=== PATIENT | female | born 1950 ===

== ENCOUNTER → 2018-02-27 | Emergency (ER) | payer OTHER ==
[~2018-02-27] VITALS: Ht 165.1 cm; Wt 65.8 kg
[~2018-02-27] MED LIST: FLEXERIL5 MG; MELOXICAM15 MG; TRAMADOL HCL50 MG
== END | disposition home or self-care (01) ==
LOC: ER 21:04
DX: S80.02XA Contusion of left knee, initial encounter (principal); S20.222A Contusion of left back wall of thorax, initial encounter; S20.221A Contusion of right back wall of thorax, initial encounter; W18.39XA Other fall on same level, initial encounter; Y93.89 Activity, other specified; Y92.89 Other specified places as the place of occurrence of the external cause; Y99.8 Other external cause status

== ENCOUNTER 2021-06-22 08:15 | Outpatient (CLI) | payer OTHER | END 2021-06-22 08:20 | disposition home or self-care (01) | LOC: PPH VACUNA 08:15 | PROVIDERS: ATTEND Emergency Medicine Pediatric Emergency Medicine | DX: Z23 Encounter for immunization (principal) ==

== ENCOUNTER → 2021-06-26 11:35 | Outpatient (CLI) | payer OTHER | END | disposition home or self-care (01) | LOC: LAB 11:35 | PROVIDERS: ATTEND Physical Medicine & Rehabilitation Sports Medicine | DX: R05 Cough (principal); Z03.818 Encounter for observation for suspected exposure to other biological agents ruled out; M35.89 Other specified systemic involvement of connective tissue; R06.02 Shortness of breath; J12.82 Pneumonia due to coronavirus disease 2019; M35.81 Multisystem inflammatory syndrome; R50.9 Fever, unspecified; Z11.52 Encounter for screening for COVID-19 ==

== ENCOUNTER 2021-06-26 14:10 | Outpatient (CLI) | payer OTHER | END 2021-06-26 14:13 | disposition home or self-care (01) | LOC: RAD 14:10 | PROVIDERS: ATTEND Physical Medicine & Rehabilitation Sports Medicine | DX: M17.0 Bilateral primary osteoarthritis of knee (principal) ==

== ENCOUNTER 2021-07-13 15:00 | Outpatient (CLI) | payer OTHER | END 2021-07-13 15:30 | disposition home or self-care (01) | LOC: PPH VACUNA 15:00 | PROVIDERS: ATTEND Emergency Medicine Pediatric Emergency Medicine | DX: Z23 Encounter for immunization (principal) ==